=== PATIENT | female | born 1990 | race Caucasian/White ===

== ENCOUNTER 2016-06-13 23:08 | Emergency (ER) | payer OTHER ==
[2016-06-13 23:19] VITALS: TEMP 97.9; BMI 34.0
[2016-06-14] MEDS ORDERED: ALBUTEROL SO4 2.5/IPRATROPIUM 0.5 INH SOL 3 ML VIAL.NEB. NEB ONE ×2 (00:41→00:47)
--- NOTE | 2016-06-14 01:14 | PDOC ---
History of Present Illness - History of Present Illness Initial Comments: 06/14/16 01:21 The patient is a 25 year old female, 11 weeks (), with a significant past medical history of anemia, who presents to the emergency department with a few days of cough, wheezing, chest tightness, and headache which worsened today. She reports her cough is productive of green phlegm. She reports her chest feels tight and reports some wheezing. She reports a diffuse headache and reports taking 200mg Tylenol with some alleviation. She denies chest pain and dizziness. She denies fever, chills, nausea, vomit, diarrhea and constipation. She denies dysuria, frequency, urgency and hematuria. LMP: 03/26/16 Allergies: shellfish. NKDA. Past surgical history: Breast Biopsy (5 years ago) Social history: denies toxic habits. PCP - Dr. Mensah ([address] [place] [address]) <Patricia Chaparro - Last Filed: 06/14/16 01:21> <Anayeli Ernst - Last Filed: 06/14/16 01:49> - General Chief Complaint: Cold Symptoms Stated Complaint: Cold symptoms Time Seen by Provider: 06/13/16 23:26 Past History <Patricia Chaparro - Last Filed: 06/14/16 01:21> - Past Medical History Anemia: Yes - Psycho/Social/Smoking Cessation Hx Anxiety: No Suicidal Ideation: No Smoking History: Never smoked Have you smoked in the past 12 months: No Information on smoking cessation initiated: No Hx Alcohol Use: No Drug/Substance Use Hx: No Substance Use Type: None <Anayeli Ernst - Last Filed: 06/14/16 01:49> - Past Medical History Allergies/Adverse Reactions: Allergies Allergy/AdvReac Type Severity Reaction Status Date / Time shellfish derived Allergy Mild Itching Verified 06/13/16 23:19 Home Medications: Ambulatory Orders Albuterol Sulfate Inhaler - [Ventolin Hfa Inhaler -] 1 - 2 inh PO Q4H PRN #1 inhaler 06/14/16 Prednisone 10 mg PO DAILY #3 tablet 06/14/16 Review of Systems - Review of Systems Able to Perform ROS?: Yes Comments:: 06/14/16 01:21 CONSTITUTIONAL: Absent: fever, chills, diaphoresis, generalized weakness, malaise, loss of appetite HEENT: (+) rhinorrhea, nasal congestion, Absent: throat pain, throat swelling, difficulty swallowing, mouth swelling, ear pain, eye pain, visual Changes CARDIOVASCULAR: Absent: chest pain, syncope, palpitations, irregular heart rate, lightheadedness , peripheral edema RESPIRATORY: (+) Chest tightness, cough, wheezing, Absent: shortness of breath, dyspnea with exertion, orthopnea, stridor, hemoptysis GASTROINTESTINAL: Absent: abdominal pain, abdominal distension, nausea, vomiting, diarrhea, constipation, melena, hematochezia GENITOURINARY: Absent: dysuria, frequency, urgency, hesitancy, hematuria, flank pain, genital pain MUSCULOSKELETAL: Absent: myalgia, arthralgia, joint swelling SKIN: Absent: rash, itching, pallor HEMATOLOGIC/IMMUNOLOGIC: Absent: easy bleeding, easy bruising, lymphadenopathy, frequent infections ENDOCRINE: Absent: unexplained weight gain, unexplained weight loss, heat intolerance, cold intolerance NEUROLOGIC: Absent: headache, focal weakness or paresthesias, dizziness, unsteady gait, seizure, mental status changes, bladder or bowel incontinence PSYCHIATRIC: Absent: anxiety, depression, suicidal or homicidal ideation, hallucinations. <Patricia Chaparro - Last Filed: 06/14/16 01:21> *Physical Exam - Vital Signs Last Vital Signs Temp Pulse Resp BP Pulse Ox 97.9 F 116 H 18 156/100 97 06/13/16 23:16 06/13/16 23:16 06/13/16 23:16 06/13/16 23:16 06/13/16 23:16 - Physical Exam Comments: 06/14/16 01:22 GENERAL: Well developed, well nourished. Awake and alert. No acute distress. HEENT: Normocephalic, atraumatic. PERRLA, EOMI. No conjunctival pallor. Sclera are non- icteric. Moist mucous membranes. Oropharynx is clear. NECK: Supple. Full ROM. No JVD. Carotid pulses 2+ and symmetric, without bruits. No thyromegaly. No lymphadenopathy. CARDIOVASCULAR: Regular rate and rhythm. No murmurs, rubs, or gallops. Distal pulses are 2+ and symmetric. PULMONARY: (+) scant rhonchorous breath sounds on lower left lobe. No evidence of respiratory distress. No wheezing, rales ABDOMINAL: Soft. Non-tender. Non-distended. No rebound or guarding. No organomegaly. Normoactive bowel sounds. MUSCULOSKELETAL Normal range of motion at all joints. No bony deformities or tenderness. No CVA tenderness. EXTREMITIES: No cyanosis. No clubbing. No edema. No calf tenderness. SKIN: Warm and dry. Normal capillary refill. No rashes. No jaundice. NEUROLOGICAL: Alert, awake, appropriate. Cranial nerves 2-12 intact. Normoreflexic in the upper and lower extremities. Normal speech. Toes are down-going bilaterally. Gait is normal without ataxia. PSYCHIATRIC: Cooperative. Good eye contact. Appropriate mood and affect. <Patricia Chapraro - Last Filed: 06/14/16 01:21> - Vital Signs Last Vital Signs Temp Pulse Resp BP Pulse Ox 97.9 F 116 H 18 156/100 97 06/13/16 23:16 06/13/16 23:16 06/13/16 23:16 06/13/16 23:16 06/13/16 23:16 <Anayeli Ernst - Last Filed: 06/14/16 01:49> ED Treatment Course - ADDITIONAL ORDERS Additional order review: 06/14/16 00:15 Influenza Types A,B Antigen (SUHAIL) - Final Nasopharyngeal Swab - Final 06/14/16 00:15 Group A Strep Rapid Antigen - Final Throat - Medications Given in the ED: ED Medications Discontinued Medications Generic Name Dose Route Start Last Admin Trade Name Freq PRN Reason Stop Dose Admin Albuterol/Ipratropium 1 amp 06/14/16 00:41 06/14/16 00:50 Duoneb - NEB 06/14/16 00:42 1 amp ONCE ONE Administration <Patricia Chaparro - Last Filed: 06/14/16 01:21> - Medications Given in the ED: ED Medications Discontinued Medications Generic Name Dose Route Start Last Admin Trade Name Freq PRN Reason Stop Dose Admin Albuterol/Ipratropium 1 amp 06/14/16 00:41 06/14/16 00:50 Duoneb - NEB 06/14/16 00:42 1 amp ONCE ONE Administration <Anayeli Ernst - Last Filed: 06/14/16 01:49> *DC/Admit/Observation/Transfer - Attestations Scribe Attestion: 06/14/16 01:23 Documentation prepared by Patricia Chaparro, acting as medical voucher clerk for Anayeli Ernst MD <Patricia Chaparro - Last Filed: 06/14/16 01:21> <Anayeli Ernst - Last Filed: 06/14/16 01:49> Diagnosis at time of Disposition: Cough, Wheezing - Discharge Dispostion Disposition: HOME Condition at time of disposition: Stable - Prescriptions Prescriptions: Prednisone 10 mg PO DAILY #3 tablet Albuterol Sulfate Inhaler - [Ventolin Hfa Inhaler -] 1 - 2 inh PO Q4H PRN #1 inhaler PRN Reason: Wheezing - Referrals Referrals: Makenna Bach MD [Primary Care Provider] - - Patient Instructions Printed Discharge Instructions: DI for Acute Bronchitis Additional Instructions: -please flower picker your prescriptions at your pharmacy -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
[2016-06-14] MEDS ORDERED: predniSONE 20 MG TABLET (UD) PO ONE (01:19)
[2016-06-14] MEDS ORDERED: predniSONE 20 MG TABLET (UD) ONE (01:23)
[2016-06-14 01:49] VITALS: BP 132/78; PULSE 98
== END 2016-06-14 01:49 | disposition home or self-care (01) ==
LOC: SUPCPDRO 23:08 → JER 23:08
PROC: 3E0F7GC Introduction of Other Therapeutic Substance into Respiratory Tract, Via Natural or Artificial Opening (ICD-10-PCS; principal; 2016-06-13)
DX: O99.89 Other specified diseases and conditions complicating pregnancy, childbirth and the puerperium (principal); J20.9 Acute bronchitis, unspecified; Z3A.11 11 weeks gestation of pregnancy
CPT/HCPCS: 87070; 87077; 87430; 87804; 99281-25

== ENCOUNTER 2017-01-10 05:55 | Inpatient (IN) | payer OTHER ==
[2017-01-10 06:54] VITALS: BMI 39.4
[2017-01-10] MEDS ORDERED: ELECTROLYTE-148 SOLN 500 ML IV ONE (07:00)
--- NOTE | 2017-01-10 07:18 | HP ---
Past Medical History - Admission Chief Complaint: labor pains History of Present Illness: 26 y/o at 41.3 weeks comes with labor pains. She was in labor and delivery on 01/08 with labor pains and sent home. Returns about 6am with complaints of more labor pains. She is a patient of [facility]. 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: No: Alzheimer's, CVA, Dementia, Migraine, Multiple Sclerosis, Peripheral Neuropathy, Parkinson's, Seizure, Syncope, TIA, Vertigo, Other Cardiovascular: No: AFIB, Aneurysm, Aortic Insufficiency, Aortic Stenosis, CAD, CHF, Deep Vein Thrombosis, HTN, Hyperlipdemia, DE, Mitral Insufficiency, Mitral Stenosis, Murmur, Pulmonary Hypertension, Other Pulmonary: No: Asthma, Bronchitis, Cancer, COPD, O2 Dependent, Pneumonia, Previously Intubated, Pulmonary Embolus, Pulmonary Fibrosis, Sleep Apnea, Other Gastrointestinal: No: Ascites, Cancer, Constipation, Crohn's Disease, Diverticulitis, Diverticulosis, Esophageal Varices, Gastritis, GERD, GI Bleed, Hemorrhoids, Hiatal Hernia, Inflamatory Bowel Disease, Irritable Bowel Disease, Pancreatitis, Peptic Ulcer Disease, Ulcerative Colitis, Other Hepatobiliary: No: Cirrhosis, Cholelithiasis, Cholecystitis, Choledocholithiasis , Hepatitis A, Hepatitis B, Hepatitis C, Other Renal/: No: Renal Failure, Renal Inusuff, BPH, Cancer, Hematuria, Hemodialysis , Neurogenic Bladder, Renal Calculi, UTI, Other Reproductive: No: Ectopic , Endometriosis, Fibroids, PID, Polycystic Ovary Syndrome, Postmenopausal, Other ...: 2 ...Para: 0 ...Term: 0 ...: 0 ...Spon : 0 ...Induced : 1 ...Multiple Gestation: 0 ...LMP: 03/26/16 ... Weeks Gestation by Dates: 41.3 ...EDC by Dates: 12/31/16 ...EDC by Sono: 12/31/16 Heme/Onc: No: Anemia, B12 Deficiency, Bleeding Disorder, Cancer, Current Chemotherapy, Current Radiation Therapy, Hemochromatosis, Hypercoaguable State, Myeloproliferative Synd, Sickle Cell Disease, Sickle Cell Trait, Thrombocytopenia, Other Infectious Disease: No: AIDS, C-Diff, Herpes Zoster, HIV, MRSA, STD's, Tuberculosis, VREF, Other Psych: No: Addictions, Anxiety, Bipolar, Depression, Panic, Psychosis, Schizophrenia, Other Musculoskeletal: No: Bursitis, Chronic low back pain, Hemiparesis, Hemiplegia, Osteoarthritis, Paraplegia, Other Rheumatology: No: Fibromyalgia, Gout, Lupus, Rheumatoid Arthritis, Sarcoidosis, Vasculitis, Other ENT: No: Allergic Rhinitis, Sinusitis, Other Endocrine: No: [place]'s Disease, [place]'s Disease, Diabetes Insipidus, Diabetes Mellitus, Hyperparathyroidism, Hyperthyroidism, Hypothyroidism, Osteopenia, SIADH, Other Dermatology: No: Basal Cell, Cellulitis, Eczema, Melanoma, Psoriasis, Squamous Cell, Other - Past Surgical History Past Surgical History: No: None, AAA Repair, AICD, Amputation, Appendectomy, Arthrosocopy, AV Fistula/Graft, Bariatric Surgery, Breast Biopsy, Bypass, CABG, Carotid Endarterectomy, Cataract Removal, Cholecystectomy, Colectomy, Colonoscopy, Colostomy, Craniotomy, , Cystectomy, Hernia Repair, Hysterectomy, Ileal Conduit, Ileosotomy, Joint Replacement, Kidney Transplant, Laminectomy, Liver Transplant, Mastectomy, Nephrectomy, Oopherectomy, Orchiectomy, Permanent Pacemaker, Prostatectomy, Splenectomy, Stent, Thoracotomy , TURP, Tonsillectomy, Tubal Ligation, Upper Endoscopy, Valve Replacement, Vasectomy, Vein Stripping/Ligation Hx Myomectomy: No Hx Transabdominal Cerclage: No Additional Surgical History: IAB in 2013 - Smoking History Smoking history: Never smoked Have you smoked in the past 12 months: No - Alcohol/Substance Use Hx Alcohol Use: No - Social History History of Recent Travel: No Home Medications - Allergies Allergies/Adverse Reactions: Allergies Allergy/AdvReac Type Severity Reaction Status Date / Time shellfish derived Allergy Mild Itching Verified 01/08/17 09:54 - Home Medications Home Medications: Ambulatory Orders NK [No Known Home Medication] 01/09/17 Review of Systems - Review of Systems Constitutional: reports: No Symptoms Eyes: reports: No Symptoms HENT: reports: No Symptoms Neck: reports: No Symptoms Cardiovascular: reports: No Symptoms Respiratory: reports: No Symptoms Gastrointestinal: reports: No Symptoms Genitourinary: reports: No Symptoms Breasts: reports: No Symptoms Reported Musculoskeletal: reports: No Symptoms Integumentary: reports: No Symptoms Neurological: reports: No Symptoms Endocrine: reports: No Symptoms Hematology/Lymphatic: reports: No Symptoms Psychiatric: reports: No Symptoms Physical Exam - Maternity Vital Signs: Vital Signs Temperature 98.3 F 01/10/17 05:55 Pulse Rate 109 H 01/10/17 05:55 Respiratory Rate 20 01/10/17 05:55 Blood Pressure 137/75 01/10/17 05:55 O2 Sat by Pulse Oximetry (%) Constitutional: Yes: Well Nourished Eyes: Yes: WNL HENT: Yes: WNL Neck: Yes: WNL Cardiovascular: Yes: WNL Lungs: Clear to auscultation Breast(s): Yes: WNL - Abdominal Exam/OB Number of Fetuses: Single Presentation: Vertex Contractions: Yes Regularity: Irregular Intensity: Mild/Mod Monitor Mode: External Heart Rate (range): 150 Category: I Accelerations: Uniform Decelerations: None - Vaginal Exam/OB Vaginal Bleediing: No Dilatation (cm): 6 Effacement (%): 70 Amniotic Membrane Status: Intact Nitrazine Test: Negative Station: -3 - Physical Exam Musculoskeletal: Yes: WNL Extremities: Yes: WNL ...Motor Strength: WNL Psychiatric: Yes: WNL Assessment/Plan as above admit pt desires epidural expect
[2017-01-10] MEDS ORDERED: FENTANYL/BUPIVACAINE/NS/PF - PCEA - 50 ML DISP.SYRIN EP SCH ×2 (07:30→09:00)
--- NOTE | 2017-01-10 07:49 | PN ---
Ante-Partal Exam - Subjective Vital Signs: Vital Signs Temperature 98.3 F 01/10/17 05:55 Pulse Rate 109 H 01/10/17 05:55 Respiratory Rate 20 01/10/17 05:55 Blood Pressure 137/75 01/10/17 05:55 O2 Sat by Pulse Oximetry (%) Bleeding: No Headache: No Visual changes: No Right upper quadrant pain: No - Contractions Contractions: Yes Regularity: Regular Intensity: Mild Monitor Mode: External - Exam during Labor Heart Rate: 150 Heart Rate Location: Midline Category: I Monitor Accelerations: Present Monitor Decelerations: None Exam: Vaginal Dilatation (cm): 5 Effacement (%): 90 Amniotic Membrane Status: Intact Nitrazine Test: Negative Presentation: Vertex Station: -1 - Assessment/Plan Assessment/Plan: as above continue labor expect
[2017-01-10] MEDS: ELECTROLYTE-148 SOLN 1,000 ML IV SCH ×2 (08:00→17:00)
--- NOTE | 2017-01-10 14:19 | PN ---
Progress Note (short form) - Note Progress Note: Patient seen and evaluated; she's lying comfortably in bed. She's status post epidural anesthesia. FHR : 140's, reassuring [place] : + contractions VE : 5/80/-2 AROM ( clear ) A/P : Active labor Pitocin augmentation Anticipate
[2017-01-10] MEDS ORDERED: OXYTOCIN 15 UNITS/ LR 250 ML 250 ML IVPB SCH (14:30)
[2017-01-10] MEDS ORDERED: CITRIC ACID/SODIUM CITRATE 30 ML UNIT-DOSE CUP PO ONE (18:59)
--- NOTE | 2017-01-10 18:59 | PN ---
Progress Note (short form) - Note Progress Note: Patient seen and evaluated; she's lying comfortably in bed. She c/o severe discomfort despite epidural anesthesia.. FHR : 140's, reassuring [place] : + contractions VE : 6/100 / -1 A/P : Active labor Failure to progress Decision made for primary Consent signed Prep and shave Anesthesia to see patient
--- NOTE | 2017-01-10 19:03 | OP ---
Operative Note - Note: Operative Date: 01/10/17 Pre-Operative Diagnosis: Failure to progress Operation: Primary Low Transverse Findings: Baby boy in Occiput posterior position Post-Operative Diagnosis: Same as Pre-op Surgeon: Lanette Hopkins Getter Filler: Michael Henderson Anesthesia: Spinal, Epidural Specimens Removed: Placenta Estimated Blood Loss (mls): 600 Operative Report Dictated: Yes
[2017-01-10] MEDS ORDERED: morphine SULFATE/Preservative Free 0.5 MG/ML (1cc Syringe) SPIN ONE (19:21)
[2017-01-10] MEDS ORDERED: ONDANSETRON 4 MG/2 ML VIAL IVPB PRN (19:30)
[2017-01-10] MEDS ORDERED: METHYLERGONOVINE MALEATE 0.2 MG/1 ML AMP IM PRN (21:01)
[2017-01-10] MEDS ORDERED: IBUPROFEN 600 MG TABLET (FP) PO PRN (21:01)
[2017-01-10] MEDS ORDERED: IBUPROFEN 800 MG/8 ML IJ IVPB PRN (21:01)
[2017-01-10] MEDS ORDERED: D5W-LR W/ 20 UNITS OXYTOCIN 1,000 ML IV SCH (21:15)
[2017-01-10] MEDS: FERROUS SO4 325 MG TABLET (FP) PO SCH (23:00)
[2017-01-11 06:52] LABS: BASOPHIL 0.4 % (0-2.0); EOSINOPHIL 0.4 % (0-4.5); MEAN CELL VOLUME 70.8 fl (80-96); MEAN PLT VOLUME 7.6 fl (7.5-11.1); NEUTROPHILS 79.6 % (42.8-82.8); PLATELET COUNT 261 K/MM3 (134-434); RDW 21.2 % (11.6-15.6); WHITE BLOOD COUNT 16.9 K/mm3 (4.0-10.0)
--- NOTE | 2017-01-11 08:15 | PN ---
Progress Note, Physician Chief Complaint: Pt. not yet ambulating, still has barraza in place. Pain controlled, no anesthesia complaints. - Current Medication List Current Medications: Active Medications Acetaminophen (Tylenol -) 650 mg PO Q4H PRN PRN Reason: FEVER OR PAIN Bisacodyl (Dulcolax Suppository -) 10 mg RC PRN PRN PRN Reason: CONSTIPATION Diphenhydramine HCl (Benadryl Injection -) 25 mg IVPUSH Q4H PRN PRN Reason: Pruritis Last Admin: 01/11/17 01:28 Dose: 25 mg Fentanyl/Bupivacaine/Sodium Chlor (Bupivicaine 0.125%/Fentanyl 2mcg/Ml Pcea -) 50 ml EP ASDIR REY PRN Reason: Protocol Last Admin: 01/10/17 09:15 Dose: 50 ml Ferrous Sulfate (Feosol -) 325 mg PO BID REY Last Admin: 01/10/17 23:00 Dose: Not Given Parenteral Electrolytes (Plasma-Lyte 148 -) 1,000 mls @ 125 mls/hr IV ASDIR REY Last Admin: 01/10/17 17:00 Dose: 125 mls/hr Oxytocin/Lactated Ringer's (Lactated Ringer+ 15 Units Pitocin) 250 mls @ 1 mls/ hr IVPB ASDIR REY; 0.06 UNIT/HR PRN Reason: Protocol Last Titration: 01/10/17 18:30 Dose: 0 unit/hr Dextrose/Lactated Ringer's (Pitocin 20 Units In D5-Lr -) 1,000 mls @ 125 mls/ hr IV ASDIR REY Ibuprofen (Motrin -) 600 mg PO Q4H PRN PRN Reason: PAIN Ibuprofen (Motrin -) 600 mg PO Q4H PRN PRN Reason: PAIN Ibuprofen (Caldolor Injection -) 800 mg IVPB Q8H PRN PRN Reason: PAIN OR FEVER Last Admin: 01/11/17 01:28 Dose: 800 mg Methylergonovine Maleate (Methergine Injection -) 0.2 mg IM Q4H PRN PRN Reason: Excessive Bleeding (L&D) Multivit/Folic Acid/Iron ( Vitamins (Sjr) -) 1 tab PO DAILY REY Simethicone (Mylicon -) 80 mg PO Q4H PRN PRN Reason: GAS - Objective Vital Signs: Vital Signs Temperature 98 F 01/11/17 06:00 Pulse Rate 113 H 01/11/17 06:00 Respiratory Rate 18 01/11/17 06:00 Blood Pressure 115/61 01/11/17 06:00 O2 Sat by Pulse Oximetry (%) 100 01/10/17 21:05 Constitutional: Yes: Well Nourished, No Distress, Calm Musculoskeletal: Yes: WNL Neurological: Yes: WNL, Alert, Oriented ...Motor Strength: WNL Labs: CBC, BMP 01/11/17 05:45 Assessment/Plan POD#1 s/p under spinal with duramorph. Doing well. D/C from anesthesia care once she voids.
[2017-01-11] MEDS: FERROUS SO4 325 MG TABLET (FP) PO SCH ×2 (09:20→21:48)
[2017-01-11] MEDS: PRENATAL VITAMINS W/ FOLIC ACID TABLET (FP) PO SCH (09:20)
--- NOTE | 2017-01-11 09:23 | PN ---
Post Progress Note - Subjective Subjective: 26 yo Para 1 status post primary seen and evaluated. She's breast feeding; no complaints. Post Day: 1 Type of Delivery: Primary C/S Vital Signs: Vital Signs Temperature 98 F 01/11/17 06:00 Pulse Rate 113 H 01/11/17 06:00 Respiratory Rate 18 01/11/17 08:00 Blood Pressure 115/61 01/11/17 06:00 O2 Sat by Pulse Oximetry (%) 100 01/10/17 21:05 Breast Exam: Yes: Soft Uterus: Yes: Fundus Firm Incision: Yes: Dressing dry and intact Abdomen/GI: Yes: Abdomen soft Lochia: Yes: Rubra Lochia, amount: Small Extremities: Yes: Calves non-tender Perineum: Yes: Intact Activity: Other (She's lying in bed) - Labs Labs: CBC WBC 16.9 K/mm3 (4.0-10.0) H D 01/11/17 05:45 RBC 4.05 M/mm3 (3.60-5.2) 01/11/17 05:45 Hgb 8.9 GM/dL (10.7-15.3) L D 01/11/17 05:45 Hct 28.7 % (32.4-45.2) L 01/11/17 05:45 MCV 70.8 fl (80-96) L 01/11/17 05:45 MCH 22.0 pg (25.7-33.7) L 01/11/17 05:45 MCHC 31.0 g/dl (32.0-36.0) L 01/11/17 05:45 RDW 21.2 % (11.6-15.6) H 01/11/17 05:45 Plt Count 261 K/MM3 (134-434) 01/11/17 05:45 MPV 7.6 fl (7.5-11.1) 01/11/17 05:45 Neutrophils % 79.6 % (42.8-82.8) 01/11/17 05:45 Lymphocytes % 10.8 % (8-40) 01/11/17 05:45 Monocytes % 8.8 % (3.8-10.2) 01/11/17 05:45 Eosinophils % 0.4 % (0-4.5) D 01/11/17 05:45 Basophils % 0.4 % (0-2.0) 01/11/17 05:45 Problem List - Problems (1) Status post primary low transverse section Code(s): Z98.891 - HISTORY OF UTERINE SCAR FROM PREVIOUS SURGERY Assessment/Plan Status post primary Ambulation Analgesia as needed Continue routine post op care
[2017-01-11] MEDS: SIMETHICONE 80 MG TAB.CHEW (FP) PO PRN ×3 (10:01→20:29)
[2017-01-11] MEDS: ACETAMINOPHEN 325 MG TABLET (FP) PO PRN ×3 (10:02→20:29)
[2017-01-11] MEDS: IBUPROFEN 600 MG TABLET (FP) PO PRN ×3 (10:05→20:31)
[2017-01-11 11:46] LABS: ANISOCYTOSIS 2+; HYPOCHROMIA 2+; MICROCYTOSIS 2+
[2017-01-11] MEDS ORDERED: BISACODYL 10 MG SUPP.RECT RC PRN (21:01)
[2017-01-12] MEDS: IBUPROFEN 600 MG TABLET (FP) PO PRN ×5 (02:32→22:45)
[2017-01-12] MEDS: ACETAMINOPHEN 325 MG TABLET (FP) PO PRN ×5 (02:32→22:44)
[2017-01-12] MEDS: SIMETHICONE 80 MG TAB.CHEW (FP) PO PRN ×5 (02:32→22:44)
--- NOTE | 2017-01-12 07:12 | PN ---
Post Progress Note Post Day: 2 Type of Delivery: Primary C/S Vital Signs: Vital Signs Temperature 98.0 F 01/11/17 22:00 Pulse Rate 113 H 01/11/17 22:00 Respiratory Rate 20 01/11/17 22:00 Blood Pressure 103/64 01/11/17 22:00 O2 Sat by Pulse Oximetry (%) 97 01/11/17 09:00 Breast Exam: Yes: Soft Uterus: Yes: Fundus Firm Incision: Yes: Dressing dry and intact Abdomen/GI: Yes: Abdomen soft Lochia: Yes: Rubra Lochia, amount: Small Extremities: Yes: Calves non-tender Perineum: Yes: Intact Activity: Ambulating - Labs Labs: CBC WBC 16.9 K/mm3 (4.0-10.0) H D 01/11/17 05:45 RBC 4.05 M/mm3 (3.60-5.2) 01/11/17 05:45 Hgb 8.9 GM/dL (10.7-15.3) L D 01/11/17 05:45 Hct 28.7 % (32.4-45.2) L 01/11/17 05:45 MCV 70.8 fl (80-96) L 01/11/17 05:45 MCH 22.0 pg (25.7-33.7) L 01/11/17 05:45 MCHC 31.0 g/dl (32.0-36.0) L 01/11/17 05:45 RDW 21.2 % (11.6-15.6) H 01/11/17 05:45 Plt Count 261 K/MM3 (134-434) 01/11/17 05:45 MPV 7.6 fl (7.5-11.1) 01/11/17 05:45 Neutrophils % 79.6 % (42.8-82.8) 01/11/17 05:45 Lymphocytes % 10.8 % (8-40) 01/11/17 05:45 Monocytes % 8.8 % (3.8-10.2) 01/11/17 05:45 Eosinophils % 0.4 % (0-4.5) D 01/11/17 05:45 Basophils % 0.4 % (0-2.0) 01/11/17 05:45 Hypochromia 2+ 01/11/17 05:45 Anisocytosis 2+ 01/11/17 05:45 Microcytosis 2+ 01/11/17 05:45 Assessment/Plan as above oob reg diet pain control
[2017-01-12 08:18] LABS: BASOPHIL 0.7 % (0-2.0); EOSINOPHIL 2.1 % (0-4.5); MCH 21.4 pg (25.7-33.7); MCHC 30.3 g/dl (32.0-36.0); MEAN CELL VOLUME 70.7 fl (80-96); MEAN PLT VOLUME 7.3 fl (7.5-11.1); NEUTROPHILS 75.1 % (42.8-82.8); PLATELET COUNT 284 K/MM3 (134-434); RDW 21.1 % (11.6-15.6); WHITE BLOOD COUNT 15.7 K/mm3 (4.0-10.0)
[2017-01-12] MEDS: FERROUS SO4 325 MG TABLET (FP) PO SCH ×2 (08:59→22:44)
[2017-01-12] MEDS: PRENATAL VITAMINS W/ FOLIC ACID TABLET (FP) PO SCH (09:00)
[2017-01-12] MEDS ORDERED: FLU VACC QS2017-18 36MOS UP/PF 60 MCG/0.5 ML SYRINGE IM ONE (10:00)
[2017-01-13] MEDS: IBUPROFEN 600 MG TABLET (FP) PO PRN ×5 (04:14→21:51)
[2017-01-13] MEDS: ACETAMINOPHEN 325 MG TABLET (FP) PO PRN ×5 (04:15→21:50)
[2017-01-13] MEDS: SIMETHICONE 80 MG TAB.CHEW (FP) PO PRN ×4 (04:15→17:13)
[2017-01-13 08:31] LABS: BASOPHIL 0.4 % (0-2.0); EOSINOPHIL 3.8 % (0-4.5); MCH 21.7 pg (25.7-33.7); MCHC 30.5 g/dl (32.0-36.0); NEUTROPHILS 73.6 % (42.8-82.8); PLATELET COUNT 288 K/MM3 (134-434); RDW 21.4 % (11.6-15.6); WHITE BLOOD COUNT 12.4 K/mm3 (4.0-10.0)
[2017-01-13] MEDS: PRENATAL VITAMINS W/ FOLIC ACID TABLET (FP) PO SCH (09:06)
[2017-01-13] MEDS: FERROUS SO4 325 MG TABLET (FP) PO SCH ×2 (09:06→21:51)
--- NOTE | 2017-01-13 15:18 | PATH ---
Surgical Pathology Report Patient Name: JOSEY FELIPE Med. Rec. 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 Specimen(s) Received PLACENTA Clinical History VTOP x1, history of breast biopsy-benign 41.3 weeks gestation Final Diagnosis PLACENTA, DELIVERY: FOCALLY DISRUPTED THIRD TRIMESTER PLACENTA WITH INTERVILLOUS FIBRIN DEPOSITION, MILD VILLOUS IMMATURITY, THREE VESSEL UMBILICAL CORD AND UNREMARKABLE PLACENTAL MEMBRANES. Electronically Signed Emmanuel Mcneil M.D. Gross Description The specimen is received fresh labeled placenta and is a 574 gram, 18.0 x 12.5 x 3.5 cm. placenta with attached membranes and umbilical cord. The attached membranes are agudelo, translucent with focal opacities and insert marginally. The umbilical cord measures 25 cm. in length and averages 1.2 cm. in diameter. The cord inserts eccentrically, 4.5 cm. to the nearest margin. No true knots or strictures are identified. Cut surface of the umbilical cord reveals 3 vessels. The surface is bond blue with abundant fibrin deposition and appropriate caliber vessels. The maternal surface is red-brown with focal defects. Sectioning reveals red-brown, spongy parenchyma. No lesions are identified. Monotype Operator sections are submitted in three cassettes as follows: 1- membrane rolls and umbilical cord; 2-3- full thickness sections of placenta. /01/12/2017 [facility]01/12/2017
--- NOTE | 2017-01-13 20:56 | PN ---
Post Progress Note - Subjective Subjective: 26 yo Para 1 status post primary , seen and evaluated. Doing well. Post Day: 3 Type of Delivery: Primary C/S Vital Signs: Vital Signs Temperature 98.1 F 01/13/17 10:00 Pulse Rate 108 H 01/13/17 10:00 Respiratory Rate 20 01/13/17 10:00 Blood Pressure 123/86 01/13/17 10:00 O2 Sat by Pulse Oximetry (%) 97 01/11/17 09:00 Breast Exam: Yes: Soft Incision: Yes: Other (Sterile strips in place) Lochia: Yes: Rubra Lochia, amount: Small Extremities: Yes: Calves non-tender Perineum: Yes: Intact Activity: Ambulating - Labs Labs: CBC WBC 12.4 K/mm3 (4.0-10.0) H 01/13/17 08:00 RBC 3.74 M/mm3 (3.60-5.2) 01/13/17 08:00 Hgb 8.1 GM/dL (10.7-15.3) L 01/13/17 08:00 Hct 26.6 % (32.4-45.2) L 01/13/17 08:00 MCV 71.0 fl (80-96) L 01/13/17 08:00 MCH 21.7 pg (25.7-33.7) L 01/13/17 08:00 MCHC 30.5 g/dl (32.0-36.0) L 01/13/17 08:00 RDW 21.4 % (11.6-15.6) H 01/13/17 08:00 Plt Count 288 K/MM3 (134-434) 01/13/17 08:00 MPV 7.0 fl (7.5-11.1) L 01/13/17 08:00 Neutrophils % 73.6 % (42.8-82.8) 01/13/17 08:00 Lymphocytes % 16.6 % (8-40) 01/13/17 08:00 Monocytes % 5.6 % (3.8-10.2) 01/13/17 08:00 Eosinophils % 3.8 % (0-4.5) D 01/13/17 08:00 Basophils % 0.4 % (0-2.0) 01/13/17 08:00 Hypochromia 2+ 01/11/17 05:45 Anisocytosis 2+ 01/11/17 05:45 Microcytosis 2+ 01/11/17 05:45 Problem List - Problems (1) Status post primary low transverse section Code(s): Z98.891 - HISTORY OF UTERINE SCAR FROM PREVIOUS SURGERY Assessment/Plan Status post primary Stable Continue routine post op care
--- NOTE | 2017-01-13 21:01 | DS ---
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: Vital Signs Temperature 98.1 F 01/13/17 10:00 Pulse Rate 108 H 01/13/17 10:00 Respiratory Rate 20 01/13/17 10:00 Blood Pressure 123/86 01/13/17 10:00 O2 Sat by Pulse Oximetry (%) 97 01/11/17 09:00 Constitutional: Yes: Well Nourished Eyes: Yes: Conjunctiva Clear HENT: Yes: Atraumatic Neck: Yes: Supple Cardiovascular: Yes: Regular Rate and Rhythm Respiratory: Yes: Regular Gastrointestinal: Yes: Normal Bowel Sounds ...Rectal Exam: Yes: WNL Renal/: Yes: WNL Pelvis: Yes: WNL External Genitalia: Yes: Normal Vaginal Exam: Yes: Normal Cervix: Yes: Normal Uterus: Yes: Normal ....Post : Yes: Uterus firm Breast(s): Yes: WNL Wound/Incision: Yes: Clean/Dry, Steri Strips (in place) Neurological: Yes: Alert, Oriented Labs: CBC, BMP 01/13/17 08:00 Delivery - Delivery Type of Anesthesia: Spinal Episiotomy/Laceration: None EBL (cc): 600 Delivery, Single - Stages of Labor Date 1st Stage Initiatied: 01/10/17 Time 1st Stage Initiated: 02:00 Date of Delivery: 01/10/17 Time of Delivery: 19:35 Time Placenta Delivered: 19:36 - 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 Present: Yes Name: Maria C Monroy Infant Gender: Male Weight: 7 lb 8 oz Position: OP Total Hours ROM (Hrs/Mins): 2 mins - 1 Minute Total Score: 9 5 Minutes Total Score: 9 - Sax[place] Feeding Plan Initial Plan: Exclusive throughout hospitalization Discharge Summary Reason For Visit: LABOR Current Active Problems Status post primary low transverse section (Acute) Procedures: Principal: Primary Low Transverse Hospital Course: Routine Post op care Condition: Good - Instructions Referrals: Edgar Trejo MD [Staff Physician] - Disposition: HOME - Home Medications Comprehensive Discharge Medication List: Ambulatory Orders NK [No Known Home Medication] 01/09/17
[2017-01-14] MEDS: ACETAMINOPHEN 325 MG TABLET (FP) PO PRN ×3 (01:33→10:03)
[2017-01-14] MEDS: IBUPROFEN 600 MG TABLET (FP) PO PRN ×3 (01:34→10:02)
[2017-01-14] MEDS: SIMETHICONE 80 MG TAB.CHEW (FP) PO PRN (06:37)
--- NOTE | 2017-01-14 08:05 | PN ---
Progress Note (short form) - Note Progress Note: pod 4 doing well, no c/o voids ok, no dizziness Last Vital Signs Temp Pulse Resp BP Pulse Ox 97.7 F 107 H 20 122/66 97 01/13/17 22:00 01/13/17 22:00 01/13/17 22:00 01/13/17 22:00 01/11/17 09:00 CBC, BMP 01/13/17 08:00 abdomen soft, no distension, no cva, incision dry, clean no calf tenserness lochia mild plan d/c home, rtc on Tuesday for allyn removal iron, vit
[2017-01-14] MEDS: PRENATAL VITAMINS W/ FOLIC ACID TABLET (FP) PO SCH (10:01)
[2017-01-14] MEDS: FERROUS SO4 325 MG TABLET (FP) PO SCH (10:02)
[2017-01-14 11:47] VITALS: BP 125/74; PULSE 106; TEMP 97.9
--- NOTE | 2017-01-27 07:49 | OP ---
DATE OF OPERATION: 01/10/2017 PREOPERATIVE DIAGNOSIS: Failure to progress. POSTOPERATIVE DIAGNOSIS: Failure to progress. PROCEDURE: Primary low transverse section. SURGEON: Lanette Hopkins MD CASEWORKER: ANESTHESIA: Epidural. COMPLICATIONS: None. ESTIMATED BLOOD LOSS: 600 mL. DESCRIPTION OF PROCEDURE: Patient was taken to the operating room where epidural anesthesia was found to be adequate. Patient was then prepped and draped in proper sterile fashion. A Pfannenstiel skin incision was made and carried down to the underlying layer of fascia. The fascia was incised in the midline and extended laterally. The superior aspect of the fascial incision was then grasped with the Ryan clamp, elevated, and the rectus muscle dissected off bluntly. Attention was then turned to the inferior aspect of the fascial incision which in a similar fashion was then grasped with the Ryan clamp, elevated, and the rectus muscle dissected off bluntly. The rectus muscle was then in the midline, the peritoneum identified and entered sharply with Metzenbaum scissors. This incision was extended superiorly and inferiorly, with good visualization of the bladder. Then the vesicouterine peritoneum was then grasped with a pickup and entered sharply with the Metzenbaum scissors. This incision was extended laterally and a bladder flap created digitally. The bladder blade was reinserted. Then a 10 blade was used to incise the lower uterine segment and the head was delivered atraumatically. Nose and mouth were suctioned, the cord clamped and cut. The was handed to the waiting wrapping checker. The placenta was removed manually, the uterus exteriorized and cleared of all clots and debris. The uterine incision was repaired using 0 Vicryl in a running locked fashion. A second layer of the same suture was used as a means to provide excellent hemostasis. The pelvis was then irrigated. The uterus was returned to the abdomen. The peritoneum was closed using 2-0 Biosyn. The fascia was reapproximated using 0 Vicryl in a running fashion, and the skin was closed with allyn. Patient tolerated the procedure well. Patient was then taken to PACU in stable condition. PATHOLOGY: Placenta. Cachorro GARCIA/[id number]
== END 2017-01-14 11:00 | disposition home or self-care (01) | DRG 766 ==
LOC: JLDR 05:55 → J3W 22:00
PROVIDERS: ADMIT Obstetrics & Gynecology; ATTEND Obstetrics & Gynecology
PROC: 10D00Z1 Extraction of Products of Conception, Low, Open Approach (ICD-10-PCS; principal; 2017-01-10)
DX: O48.0 Post-term pregnancy (principal); O62.1 Secondary uterine inertia; Z37.0 Single live birth; Z3A.41 41 weeks gestation of pregnancy
CPT/HCPCS: 36415; 85025; 88307-TC

== ENCOUNTER 2020-05-29 22:26 | Emergency (ER) | payer OTHER ==
[2020-05-29 22:35] VITALS: BMI 36.3
[2020-05-29 23:19] LABS: BASO % 0.3 % (0-2.0); EOS % 0.4 % (0-4.5); HEMATOCRIT 28.2 % (32.4-45.2); HEMOGLOBIN 8.8 GM/dL (10.7-15.3); LYMPH % 28.7 % (8-40); MCHC 31.2 g/dl (32.0-36.0); MEAN CELL VOLUME 60.9 fl (80-96); MEAN PLT VOLUME 8.4 fl (7.5-11.1); MONO % 10.3 % (3.8-10.2); NEUT % 60.3 % (42.8-82.8); PLATELET COUNT 379 K/MM3 (134-434); RBC 4.64 M/mm3 (3.60-5.2); WHITE BLOOD COUNT 5.3 K/mm3 (4.0-10.0)
[2020-05-29] MEDS ORDERED: FAMOTIDINE 20 MG/50 ML IVPB 20 MG/50 ML MG IVPB ONE ×2 (23:24→23:34)
[2020-05-29] MEDS ORDERED: MAG HYDROX/AL HYDROX/SIMETH -MYLANTA- ORAL SUSPENSION PO ONE (23:24)
[2020-05-29] MEDS ORDERED: MAG HYDROX/AL HYDROX/SIMETH 30 ML UNIT-DOSE CUP ONE (23:34)
[2020-05-29 23:38] LABS: CHLORIDE 107 mmol/L (98-107); POTASSIUM 4.4 mmol/L (3.5-5.1); SODIUM 136 mmol/L (136-145)
[2020-05-29 23:40] LABS: ALBUMIN 2.5 g/dl (3.4-5.0); ANION GAP 9 MMOL/L (8-16); BLOOD UREA NITROGEN 7.6 mg/dL (7-18); CALCIUM 8.1 mg/dL (8.5-10.1); CO2 20 mmol/L (21-32); GLUCOSE,RANDOM 90 mg/dL (74-106)
[2020-05-29 23:43] LABS: SGPT/ALT 74 U/L (13-61)
[2020-05-29 23:45] LABS: BILIRUBIN,TOTAL 0.2 mg/dL (0.2-1); TOT PROT 6.6 g/dl (6.4-8.2)
[2020-05-29 23:46] LABS: ALK PHOS 86 U/L (45-117)
[2020-05-29 23:47] LABS: INR 0.89 (0.83-1.09)
[2020-05-29 23:49] LABS: CREATININE 0.5 mg/dL (0.55-1.3); SGOT/AST 49 U/L (15-37)
[2020-05-29 23:50] LABS: ACTIVATED PTT 30.6 SECONDS (25.2-36.5)
[2020-05-29] MEDS ORDERED: SODIUM CHLORIDE 500 ML IV STA (23:58)
[2020-05-30 00:10] VITALS: BP 113/73; TEMP 98.1
[2020-05-30 01:25] VITALS: PULSE 96
== END 2020-05-30 01:29 | disposition home or self-care (01) ==
LOC: JER 22:26
PROC: 3E033GC Introduction of Other Therapeutic Substance into Peripheral Vein, Percutaneous Approach (ICD-10-PCS; principal; 2020-05-29)
PROC: 3E0337Z Introduction of Electrolytic and Water Balance Substance into Peripheral Vein, Percutaneous Approach (ICD-10-PCS; 2020-05-29)
DX: R07.9 Chest pain, unspecified (principal); U07.1 COVID-19
CPT/HCPCS: 36415; 71275-TC; 80053; 84484; 85025; 85379; 85610; 85730; 93005; 93010; 99285-25

== ENCOUNTER 2020-10-27 03:30 | Inpatient (IN) | payer OTHER ==
[~2020-10-27 03:30] MED LIST: ELECTROLYTE-148 SOLN 1,000 ML IV SCH
[2020-10-27 05:27] LABS: BLOOD UREA NITROGEN 10.2 mg/dL (7-18); CALCIUM 8.4 mg/dL (8.5-10.1)
[2020-10-27 05:31] LABS: CREATININE 0.6 mg/dL (0.55-1.3)
[2020-10-27 05:43] LABS: INR 0.87 (0.83-1.09); PROTHROMBIN TIME (PATIENT) 10.8 SEC (9.7-13.0)
[2020-10-27 05:54] VITALS: BMI 39.0
[2020-10-27 06:24] LABS: BASO % 0.5 % (0-2.0); EOS % 1.1 % (0-4.5); HEMATOCRIT 32.6 % (32.4-45.2); HEMOGLOBIN 10.1 GM/dL (10.7-15.3); LYMPH % 21.3 % (8-40); MCH 22.2 pg (25.7-33.7); MCHC 30.8 g/dl (32.0-36.0); MEAN PLT VOLUME 7.7 fl (7.5-11.1); MONO % 8.5 % (3.8-10.2); NEUT % 68.6 % (42.8-82.8); PLATELET COUNT 296 10^3/uL (134-434); RBC 4.53 M/mm3 (3.60-5.2); RDW 22.2 % (11.6-15.6); WHITE BLOOD COUNT 8.4 K/mm3 (4.0-10.0)
[2020-10-27 10:50] LABS: ANISOCYTOSIS 3+; MACROCYTOSIS 0; PLATELET ESTIMATE NORMAL
[2020-10-27] MEDS ORDERED: ceFAZolin 2 GRAM PREMIX BAG IVPB ONE (16:15)
[2020-10-27] MEDS: AZITHROMYCIN IVPB 500 MG/250 ML BAG IVPB ONE ×2 (16:20→18:18)
[2020-10-27] MEDS ORDERED: AZITHROMYCIN IVPB 500 MG/250 ML BAG IVPB ONE (16:26)
[2020-10-27] MEDS ORDERED: morphine SULFATE/PF 0.5 MG/ML (2cc Syringe - QUVA) ONE (16:33)
[2020-10-27] MEDS ORDERED: PROPOFOL 20 ML ONE (16:33)
[2020-10-27] MEDS ORDERED: ePHEDrine SULFATE 50 MG/1 ML AMPULE ONE (16:33)
[2020-10-27] MEDS ORDERED: SUCCINYLCHOLINE CHLORIDE 200 MG/10 ML SYRINGE ONE (16:33)
[2020-10-27] MEDS ORDERED: KETOROLAC TROMETHAMINE 30 MG/1 ML VIAL ONE (17:20)
[2020-10-27] MEDS ORDERED: ONDANSETRON 4 MG/2 ML VIAL ONE (17:20)
[2020-10-27] MEDS ORDERED: OXYTOCIN 20 UNITS in 0.9% NS 20 UNIT/1,000 ML INFUS.BAG IV ONE (17:24)
[2020-10-27] MEDS ORDERED: ceFAZolin SODIUM 1 GM VIAL ONE (17:26)
[2020-10-27] MEDS ORDERED: PHENYLEPHRINE HCL 10 MG/1 ML SINGLE DOSE VIAL ONE (17:26)
[2020-10-27] MEDS ORDERED: ONDANSETRON 4 MG/2 ML VIAL IVPUSH PRN (17:29)
[2020-10-27] MEDS ORDERED: morphine SULFATE/PF 0.5 MG/ML (2cc Syringe - QUVA) EP ONE (17:29)
[2020-10-27] MEDS ORDERED: IBUPROFEN 800 MG/8 ML IJ IVPB PRN (18:06)
[2020-10-27] MEDS ORDERED: oxyCODONE HCL 5 MG TABLET PO PRN (18:06)
[2020-10-27] MEDS ORDERED: OXYTOCIN 20 UNITS in 0.9% NS 20 UNIT/1,000 ML INFUS.BAG IV SCH (18:15)
[2020-10-28 08:09] LABS: BASO % 0.8 % (0-2.0); EOS % 0.6 % (0-4.5); HEMATOCRIT 28.5 % (32.4-45.2); LYMPH % 12.1 % (8-40); MCH 22.6 pg (25.7-33.7); MCHC 31.7 g/dl (32.0-36.0); MEAN CELL VOLUME 71.3 fl (80-96); MONO % 8.2 % (3.8-10.2); NEUT % 78.3 % (42.8-82.8); PLATELET COUNT 245 10^3/uL (134-434); RBC 3.99 M/mm3 (3.60-5.2); RDW 21.7 % (11.6-15.6); WHITE BLOOD COUNT 9.8 K/mm3 (4.0-10.0)
[2020-10-28] MEDS: SIMETHICONE 80 MG TAB.CHEW (FP) PO PRN ×3 (08:50→21:32)
[2020-10-28] MEDS: ACETAMINOPHEN 325 MG TABLET (FP) PO PRN ×2 (13:54→21:31)
[2020-10-28] MEDS: IBUPROFEN 600 MG TABLET (FP) PO PRN ×2 (13:54→21:31)
[2020-10-28] MEDS ORDERED: BISACODYL 10 MG SUPP.RECT RC PRN (18:06)
[2020-10-29] MEDS: ACETAMINOPHEN 325 MG TABLET (FP) PO PRN ×2 (02:30→08:25)
[2020-10-29] MEDS: SIMETHICONE 80 MG TAB.CHEW (FP) PO PRN ×2 (02:30→08:26)
[2020-10-29] MEDS: IBUPROFEN 600 MG TABLET (FP) PO PRN ×2 (02:30→08:26)
[2020-10-29 09:33] VITALS: BP 121/84; PULSE 90; TEMP 97.9
== END 2020-10-29 02:05 | disposition home or self-care (01) | DRG 788 ==
LOC: JLDR 03:30 → J3W 21:18
PROVIDERS: ADMIT Obstetrics & Gynecology; ATTEND Obstetrics & Gynecology
PROC: 10D00Z1 Extraction of Products of Conception, Low, Open Approach (ICD-10-PCS; principal; 2020-10-27)
DX: O34.219 Maternal care for unspecified type scar from previous cesarean delivery (principal); O48.0 Post-term pregnancy; O42.02 Full-term premature rupture of membranes, onset of labor within 24 hours of rupture; Z3A.40 40 weeks gestation of pregnancy; Z37.0 Single live birth
CPT/HCPCS: 36415; 80048; 85025; 85610; 85730; 86780; 86850; 86900; 86901; 88307-TC; C9803; U0003; U0005

== ENCOUNTER 2022-04-04 17:23 | Emergency (ER) | payer OTHER ==
[2022-04-04 17:38] VITALS: BP 105/71; PULSE 83; RESP 18; TEMP 98.3; BMI 34.7
== END 2022-04-04 18:53 | disposition home or self-care (01) ==
LOC: JER 17:23
DX: J20.9 Acute bronchitis, unspecified (principal); J09.X2 Influenza due to identified novel influenza A virus with other respiratory manifestations
CPT/HCPCS: 71046-TC-FY; 93005; 93010; 99284-25